=== PATIENT | female | born 1980 | race American Indian/Alaskan Native ===

== ENCOUNTER 2017-11-05 12:37 | Emergency (ER) | payer MEDICAID ==
[2017-11-05 13:28] VITALS: BP 111/78
--- NOTE | 2017-11-05 16:32 | Emergency Department Report ---
ED Abdominal Pain HPI - General Chief Complaint: Abdominal Pain Stated Complaint: SCAR TISSUE PAIN Time Seen by Provider: 11/05/17 16:24 Source: patient Mode of arrival: Ambulatory Limitations: No Limitations - History of Present Illness Initial Comments: Ms. Boone is a 37 yo female with L groin pain at side of scar. Her OBGYN Dr. Davis has suggested surgical revision for pain related to scar tissue. Has taken tylenol for pain. She is newly . Came to ED because she was unable to see Dr. Davis as scheduled today. MD Complaint: abdominal pain -: year(s) (several ) Location: LLQ Radiation: none Severity: mild Quality: dull Consistency: constant Improves With: movement - Related Data Home Medications Medication Instructions Recorded Confirmed Last Taken No Known Home Medications [No 12/25/15 12/25/15 Unknown Reported Home Medications] Allergies Allergy/AdvReac Type Severity Reaction Status Date / Time codeine AdvReac Hives Verified 12/25/15 23:31 Penicillins AdvReac Itching Verified 12/25/15 23:31 ED Review of Systems ROS: Stated complaint: SCAR TISSUE PAIN Other details as noted in HPI Comment: All other systems reviewed and negative Constitutional: denies: fever, malaise Cardiovascular: denies: chest pain ED Past Medical Hx - Past Medical History Hx Headaches / Migraines: Yes (MIGRAINES) - Surgical History Additional Surgical History: 2 c-sections, scar tissue removal from , ovarian cyst removed, D&C; bilateral tubligation. partial hysterectomy - Social History Smoking Status: Never Smoker Substance Use Type: None - Medications Home Medications: Home Medications Medication Instructions Recorded Confirmed Last Taken Type No Known Home Medications [No 12/25/15 12/25/15 Unknown History Reported Home Medications] ED Physical Exam - General Limitations: No Limitations General appearance: alert, in no apparent distress - Head Head exam: Present: atraumatic, normocephalic - Eye Eye exam: Present: normal appearance - ENT ENT exam: Present: mucous membranes moist - Neck Neck exam: Present: normal inspection. Absent: tenderness, meningismus - Respiratory Respiratory exam: Present: normal lung sounds bilaterally. Absent: respiratory distress, wheezes, rales, rhonchi - Cardiovascular Cardiovascular Exam: Present: regular rate, normal rhythm, normal heart sounds. Absent: systolic murmur, diastolic murmur, rubs, gallop - GI/Abdominal GI/Abdominal exam: Present: soft, normal bowel sounds. Absent: distended, tenderness, guarding, rebound - Extremities Exam Extremities exam: Present: normal inspection - Back Exam Back exam: Present: normal inspection - Neurological Exam Neurological exam: Present: alert, oriented X3 - Psychiatric Psychiatric exam: Present: normal affect, normal mood - Skin Skin exam: Present: warm, dry, intact, normal color. Absent: rash - Other Other exam information: well healed scar at bikini line without signs of infection ED Course Vital Signs 11/05/17 13:21 Temperature 98.5 F Pulse Rate 79 Respiratory 16 Rate Blood Pressure 111/78 O2 Sat by Pulse 99 Oximetry ED Medical Decision Making - Medical Decision Making 1. chronic pain at site of incisional scar, has been followed by Dr. Davis, recommended heat and tylenol 2. new without indication of ectopic , given return precautions Critical care attestation.: If time is entered above; I have spent that time in minutes in the direct care of this critically ill patient, excluding procedure time. ED Disposition Clinical Impression: Chronic pelvic pain in female, Disposition: DC-01 TO HOME OR SELFCARE Is pt being admited?: No Does the pt Need Aspirin: No Condition: Stable Instructions: Abdominal Pain (ED) Referrals: ISATU DAVIS MD [Staff Physician] - 3-5 Days
== END 2017-11-05 17:08 | disposition home or self-care (01) ==
LOC: ED 12:37
DX: O26.899 Other specified pregnancy related conditions, unspecified trimester (principal); R10.2 Pelvic and perineal pain; G89.29 Other chronic pain; G43.909 Migraine, unspecified, not intractable, without status migrainosus; Z3A.00 Weeks of gestation of pregnancy not specified; Z98.51 Tubal ligation status; Z90.711 Acquired absence of uterus with remaining cervical stump; Z88.0 Allergy status to penicillin; Z88.5 Allergy status to narcotic agent
CPT/HCPCS: 99282

== ENCOUNTER 2018-05-26 19:41 | Emergency (ER) | payer MEDICAID ==
--- NOTE | 2018-05-26 20:51 | Emergency Department Report ---
Chief Complaint: Wound/Laceration Stated Complaint: SCAR TISSUE BOTHERING ME PRIVATE AREA Time Seen by Provider: 05/26/18 20:48 - HPI History of Present Illness: states that "scar tissue from her " is bothering her 10 years ago states she called Dr. Harvey's office and states she was advised to be "evaluated in the ED" pt has been evaluated in the ED for this previously MSE screening note: Focused history performed ED Disposition for MSE Condition: Stable
--- NOTE | 2018-05-26 22:11 | Emergency Department Report ---
- General Chief complaint: Wound/Laceration Stated complaint: SCAR TISSUE BOTHERING ME PRIVATE AREA Time Seen by Provider: 05/26/18 20:48 Source: patient Mode of arrival: Ambulatory Limitations: No Limitations - History of Present Illness Initial comments: 38-year-old -[place] female presents to the emergency room for having problems at her incision site. Patient reports her last was 10 years ago and has been burning and then irritated. Patient is not taking anything for pain. Patient was seen October 2017 for the same complaint but at that time she was . Patient was referred back to Rajesh Davis who originally did her and patient did not follow through. Contacted Dr. Davis's office but they reported he was booked the patient decided to come here. Patient denies any discharge from incision site. -: year(s) (10) Severity scale (0 -10): 8 Quality: burning Consistency: intermittent Improves with: none Worsens with: none Associated symptoms: denies other symptoms Treatments Prior to Arrival: none - Related Data Home Medications Medication Instructions Recorded Confirmed Last Taken No Known Home Medications [No 12/25/15 12/25/15 Unknown Reported Home Medications] Allergies Allergy/AdvReac Type Severity Reaction Status Date / Time aspirin Allergy Anaphylaxis Verified 05/26/18 20:06 Abscess Boil HPI - HPI Chief Complaint: Wound/Laceration Stated Complaint: SCAR TISSUE BOTHERING ME PRIVATE AREA Time Seen by Provider: 05/26/18 20:48 Home Medications: Home Medications Medication Instructions Recorded Confirmed Last Taken No Known Home Medications [No 12/25/15 12/25/15 Unknown Reported Home Medications] Allergies/Adverse Reactions: Allergies Allergy/AdvReac Type Severity Reaction Status Date / Time aspirin Allergy Anaphylaxis Verified 05/26/18 20:06 ED Review of Systems ROS: Stated complaint: SCAR TISSUE BOTHERING ME PRIVATE AREA Other details as noted in HPI Comment: All other systems reviewed and negative Constitutional: no symptoms reported Eyes: as per HPI ENT: as per HPI Respiratory: no symptoms reported Cardiovascular: as per HPI Endocrine: no symptoms reported Gastrointestinal: as per HPI Genitourinary: as per HPI Musculoskeletal: as per HPI Skin: as per HPI Neurological: as per HPI Psychiatric: as per HPI Hematological/Lymphatic: as per HPI ED Past Medical Hx - Past Medical History Hx Headaches / Migraines: Yes (MIGRAINES) - Surgical History Additional Surgical History: 2 c-sections, scar tissue removal from , ovarian cyst removed, D&C; bilateral tubligation. partial hysterectomy - Social History Smoking Status: Never Smoker Substance Use Type: None - Medications Home Medications: Home Medications Medication Instructions Recorded Confirmed Last Taken Type No Known Home Medications [No 12/25/15 12/25/15 Unknown History Reported Home Medications] ED Physical Exam - General Limitations: No Limitations General appearance: alert, in no apparent distress - Head Head exam: Present: atraumatic, normocephalic - Eye Eye exam: Present: EOMI - ENT ENT exam: Present: mucous membranes moist - GI/Abdominal GI/Abdominal exam: Present: soft. Absent: distended, tenderness - Neurological Exam Neurological exam: Present: alert, oriented X3 - Psychiatric Psychiatric exam: Present: normal affect, normal mood - Expanded Skin Exam Expanded Distribution of rash: other (incision site to perfuse this with pannus hanging over incision site, incision sites well healed no discharge nonerythematous non-edematous) ED Course Vital Signs 05/26/18 20:49 Temperature 98.5 F Pulse Rate 74 Respiratory 18 Rate Blood Pressure 131/85 O2 Sat by Pulse 99 Oximetry ED Medical Decision Making - Medical Decision Making Patient has been evaluated by [facility]. Discussed the patient she can try taking [id number] Tylenol or Motrin for pain management. Discussed the patient she needs to follow-up with Dr. Rajesh Davis. Critical care attestation.: If time is entered above; I have spent that time in minutes in the direct care of this critically ill patient, excluding procedure time. ED Disposition Clinical Impression: Scar tissue Disposition: DC-01 TO HOME OR SELFCARE Is pt being admited?: No Does the pt Need Aspirin: No Condition: Stable Additional Instructions: Please take Tylenol or Motrin for pain management.. Follow-up Dr. Rajesh Davis. Referrals: RAJESH DAVIS MD [Primary Care Provider] - 3-5 Days
[2018-05-27 19:43] VITALS: BP 131/85
== END 2018-05-26 22:38 | disposition home or self-care (01) ==
LOC: ED 19:41
DX: L90.5 Scar conditions and fibrosis of skin (principal); G43.909 Migraine, unspecified, not intractable, without status migrainosus; Z90.711 Acquired absence of uterus with remaining cervical stump; Z98.51 Tubal ligation status; Z88.6 Allergy status to analgesic agent
CPT/HCPCS: 99282